=== PATIENT | female | born 1975 | race Caucasian/White ===

== ENCOUNTER 2017-11-06 09:20 | Emergency (ER) | payer MEDICAID, SELFPAY ==
[2017-11-06 09:21] VITALS: BP 123/66; PULSE 77; RESP 16; TEMP 36.8; O2SAT 97; BMI 23.9
--- NOTE | 2017-11-06 09:44 | ED.DCSUM_ITS ---
- ER Visit Summary Date of Service: 11/06/17 Chief Complaint: Dizziness History of Present Illness: The patient is a [address] Devries. She reports that she woke up this morning at 730 and had vertigo. States that she has been nauseated and vomited twice. No blood or emesis. She denies any ringing or roaring in her ear. No ear pain. No muffled hearing. She states that the dizziness has resolved and that she now just feels lightheaded. She states that this is worsened with closing her eyes. There is no change with movement of her head. She reports when she stands she does feel off balance. She denies any slurred speech, double vision, headache, numbness, tingling, or weakness. She reports she has had similar episodes in the past with hypoglycemia. Patient reports that she had 7 teeth pulled 8 days ago and has had decreased p.o. intake because of this. Physical Examination: Vitals: Stable. Afebrile. General: Well-nourished and well-developed. Head: Normocephalic atraumatic. HEENT: TMs are within normal limits bilaterally. Neck: Supple, no lymphadenopathy. No JVD. Nontender. Cardiovascular: Regular rate and rhythm. No murmurs. Respiratory: No respiratory distress. Clear to auscultation bilaterally. Abdominal: Soft, nontender, nondistended, normal bowel sounds. No guarding, rebound, or peritoneal signs. Back: Nontender. Extremities: Nontender, no edema. Skin: Normal color, no rash. Neurologic: Alert and oriented ?3. Cranial nerves II through XII are intact. Normal strength and sensation. No nystagmus. Psych: Normal affect. Test Results: CBC is more for an H&H 9.6 and 30.2. Her last hemoglobin was 10.5 on September 04 of this year. Chem-7 is more for chloride 109. test is negative. CTA head and neck are normal. MRI brain shows normal enhanced/ unenhanced brain. She does have mucosal thickening of the soft central sphenoid and mild mucosal thickening of the left maxillary sinus. Emergency Department Course and Treatment: Patient had an IV placed. She was given a liter normal saline. She was given Zofran and Antivert. She continues to complain of dizziness with ambulation. Following the MRI returning patient reports her symptoms are much better and would like to go home. Treatment Plan: Patient will be discharged with Zofran and Antivert. Instructed to follow-up her primary care physician 1 to days if not improving. Return to the emergency department for any worsening symptoms. Disposition: To home in improved and stable condition. Impression: 1. Vertigo, peripheral. This note was generated with [employer] dictation software. It may contain incorrect words, spelling, and punctuation that were not noted in review of the chart prior to signing ED Disposition - Plan for ED Patient: Disposition: Home or Assisted Living Chief Complaint: Dizziness Instructions: ED Vertigo Unspecified Prescriptions: Ondansetron [Zofran Odt] 4 mg PO Q8H PRN PRN #10 tablet PRN Reason: Nausea Meclizine HCl [Antivert] 25 mg PO 4X/DAY PRN PRN #20 tablet PRN Reason: Dizziness Referrals: Bro Devries MD [STAFF PHYSICIAN] - 2 Days Additional Instructions: If not improving.
[2017-11-06 09:57] LABS: Absolute Lymphocyte Count 1.79 X10^3/ul (0.83-4.51); Absolute Neutrophil Count 2.6 X10^3/uL (2.0-7.7); Basophil# 0.03 X10^3/uL; Basophil% 0.6 % (0-1); Eosinophil# 0.57 X10^3/uL; Eosinophils% 10.5 % (0-5); Hematocrit 30.2 % (37-47); Hemoglobin 9.6 g/dl (12.0-15.0); Lymphocyte # 1.79 X10^3/ul (4.0); Mean Corp Hgb Conc 31.8 g/gl (32-36); Mean Corpuscular Hgb 25.1 pg (27.0-32.0); Mean Corpuscular Volume 78.9 fL (81-99); Mean Platelet Vol. 9.8 fl (6.2-12.0); Monocyte# 0.46 X10^3/uL; Monocyte% 8.5 % (0-10); Neutrophil # 2.57 X10^3/uL (2.7-7.7); Neutrophil % 47.2 % (47-70); Platelet Count 485 K/mm3 (150-450); RBC Distribution Width CV 17.4 % (11.6-14.6); RBC Distribution Width SD 48.9 fl (35.1-43.9); Red Blood Count 3.83 M/mm3 (4.2-5.4); White Blood Count 5.4 K/mm3 (4.4-11.0)
[2017-11-06] MEDS: Meclizine HCl 25 MG Tablet PO (09:57)
[2017-11-06] MEDS: Ondansetron 4 MG/2 ML Vial IV (09:57)
[2017-11-06 09:58] LABS: POSITIVE COUNT NO; POSITIVE DIFFERENTIAL NO; POSITIVE MORPHOLOGY NO
[2017-11-06] MEDS: 0.9% Normal Saline 1,000 ML 1000 ML IV (09:58)
[2017-11-06 10:09] VITALS: BP 100/45; BP 103/62; BP 109/59; PULSE 59; PULSE 60; PULSE 75
[2017-11-06 10:10] LABS: Bedside Glucose 92 mg/dL (70-110)
[2017-11-06 10:10] LABS: Anion Gap 6 (5-15); BUN 7 mg/dL (7-18); BUN/Creat Ratio 9.3 RATIO (10-20); Calcium,Total 8.6 mg/dL (8.5-10.1); Chloride 109 mmol/L (98-107); Creatinine, Serum 0.76 mg/dL (0.55-1.02); EST Glomerular Filtration Rate 90 mL/min (>60); Est Glom Filt Rate - Afr Amer 109 mL/min (>60); Estimated Creatinine Clearance 80.58 ml/min; Glucose 102 mg/dL (74-106); Potassium 3.7 mmol/L (3.5-5.1); Sodium Level 141 mmol/L (136-145)
[2017-11-06 10:19] LABS: Pregnancy, Serum, hCG Quali. NEGATIVE Negative (0-9 Nonpreg)
[2017-11-06 10:37] VITALS: BP 98/59; PULSE 52; RESP 18; O2SAT 100
[2017-11-06 10:54] VITALS: BP 99/62; PULSE 60; RESP 18; O2SAT 98
[2017-11-06 12:00] VITALS: BP 96/55; PULSE 54; RESP 18; O2SAT 98
[2017-11-06 16:20] VITALS: BP 132/74; BP 132/75; PULSE 88; RESP 16; O2SAT 94
== END 2017-11-06 16:22 | disposition home or self-care (01) ==
PROVIDERS: Emergency Provider Emergency Medicine
DX: H81.399 Other peripheral vertigo, unspecified ear (principal); J45.909 Unspecified asthma, uncomplicated; Z79.899 Other long term (current) drug therapy
CPT/HCPCS: 70496; 70498; 70553; 80048; 82962; 84703; 85025; 96361; 96374; 99285; A9585; J7030; Q9967; A4216; J2405

== ENCOUNTER → 2019-05-14 08:02 | Outpatient (CLI) | payer MEDICAID, SELFPAY ==
--- NOTE | 2019-05-14 15:42 | NEURO ---
NCS and/or EMG Patient Report Ordering Doctor: Hal Lai DATE OF SERVICE: 05/14/19 Radha Wright is a 43-year-old female presents for electrodiagnostic testing of the right upper limb. She reports numbness and tingling in the right hand. Electrodiagnostic findings: The right median motor nerve demonstrates prolonged distal latency with normal amplitude and conduction velocity. Right ulnar motor responses within normal limits. Normal right ulnar and median F-wave. Prolonged median sensory latency at the wrist and palm. On needle EMG, all muscles tested in the right upper limb showed no evidence of denervation with normal motor unit action potentials. Electrodiagnostic impression: This is an abnormal study in the right upper limb. 1. Electrodiagnostic findings demonstrate right-sided median mononeuropathy. This is consistent with a mild right carpal tunnel syndrome. If there are any further questions, please do not hesitate to contact me.
== END ==
PROVIDERS: PCP Family Medicine; Referring Provider Family Medicine; Visit Provider Family Medicine
DX: R20.0 Anesthesia of skin (principal)
CPT/HCPCS: 95886; 95909

== ENCOUNTER 2020-07-05 17:35 | Emergency (ER) | payer MEDICAID, SELFPAY ==
[2020-07-05 17:36] VITALS: BP 110/79; PULSE 85; RESP 14; TEMP 36.7; O2SAT 100; BMI 23.8
--- NOTE | 2020-07-05 17:45 | EKG12_ITS ---
Test Reason : CHEST OTHER Blood Pressure : / mmHG Vent. Rate : 077 BPM Atrial Rate : 077 BPM P-R Int : 134 ms QRS Dur : 088 ms QT Int : 384 ms P-R-T Axes : 077 059 063 degrees QTc Int : 434 ms Normal sinus rhythm Low Voltage QRS (Limb Leads) Nonspecific ST abnormality Abnormal ECG Confirmed by RYANN CESPEDES, POOL ([id number]), supervising editor trailer LOREN COX ([id number]) on 07/07/2020 10:06:10 AM Referred By: ABIGAIL Confirmed By:POOL GARZON MD
--- NOTE | 2020-07-05 17:49 | ED.DCSUM_ITS ---
History of Present Illness Chief Complaint: Chest Other Informant: Patient Onset: Yesterday Context: Gradual Onset Timing: Intermittent Current Severity: Moderate Maximum Severity: Severe Narrative: The patient is a 45-year-old female with medical history significant for asthma presents to the emergency department with left-sided pleuritic chest pain. The patient states her symptoms began yesterday. She states she was trying to get into bed and felt a sharp pain in her left chest. She felt like she could not catch her breath. Of hard to twist and move. She did not have any definitive trauma. She states she went to urgent care and a lunch break today and was told that if her pain worsened to come to the emergency department. She denies fevers or chills. She states the pain is worse with palpation and twisting. She has no history of pulmonary embolus. She is otherwise been in her normal state of health. Prior similar symptoms: No Recent Illness/Hospitalization: No Past Medical History - Allergies and Home Meds Allergies/Adverse Reactions: Allergies bee venom protein (honey bee) Allergy (Verified 07/05/20 17:39) Shortness of breath Primary Care Physician: Hal Lai MD [Primary Care Provider] - Prior records reviewed: Yes Past Medical History: - - Asthma Surgical History: noncontributory Smoking Status: Never smoker Review of Systems General: Denies: Chills, Fever, Sweats Eyes: Denies: Visual changes - bilaterally, Diplopia ENT: Denies: Rhinorrhea, Sore throat Cardiovascular: Reports: Chest pain. Denies: Palpitations Respiratory: Reports: Dyspnea. Denies: Cough, Dyspnea on exertion Gastrointestinal: Denies: Abdominal pain, Nausea, Vomiting, Diarrhea, Melena, Hematochezia Genitourinary: Denies: Dysuria, Hematuria, Frequency Musculoskeletal: Denies: Back pain, Extremity Pain Skin: Denies: Rash, Wounds Neurological: Denies: Headache, Weakness, Numbness Physical Exam Vital Signs/Narrative: Vital Signs Temp Pulse Resp BP Pulse Ox 07/05/20 17:36 98.0 F 85 14 110/79 100 Inital Vital Signs reviewed: Yes General: Well nourished, Well developed, No Acute Distress Head: Normocephalic, Atraumatic Eyes: Perrl, EOMI ENT: Moist mucous membranes, No rhinorrhea Neck: Supple, Nontender Cardiovascular: Regular rate, Regular rhythm, No murmurs Respiratory: No distress, CTA bilaterally, Chest tenderness Abdomen: Soft, Nontender, Nondistended, Normal bowel sounds Back: Nontender, Normal Inspection Extremities: Nontender, No edema Skin: Normal color, No rash Neurological: Alert, Oriented x3, Cranial nerves II-XII grossly intact, Normal Strength, Normal Sensation Psychological: Normal affect, Normal Mood Diagnostic/Tx/Re-eval Clinical Impression(s) from Imaging Studies Ribs w/Chest X-Ray 07/05/20 18:27 IMPRESSION: No acute abnormalities. 5 mm calcified granuloma in the right mid lung. Electronically Signed: Gregorio Aranda MD at 18:50 EDT Tel , Service support , Chest CTA 07/05/20 18:33 IMPRESSION: Normal CTA chest examination, without a demonstrated pulmonary embolism or arterial dissection. Probable COPD, with atelectasis and small effusion in the posterior left lung base. Electronically Signed: Rodolfo Castellon MD at 19:24 EDT , Service support , Abnormal Lab Results 07/05/20 07/05/20 07/05/20 18:07 18:07 18:07 WBC 11.0 RBC 4.20 Hgb 10.1 L Hct 33.3 L MCV 79.3 L MCH 24.0 L MCHC 30.3 L RDW Std Deviation 44.8 H RDW Coeff of Garfield 15.7 H Plt Count 414 MPV 9.4 Immature Gran % (Auto) 0.300 Neut % (Auto) 63.1 Lymph % (Auto) 24.0 Jewell % (Auto) 8.1 Eos % (Auto) 4.0 Baso % (Auto) 0.5 Absolute Neuts (auto) 7.0 Absolute Lymphs (auto) 2.65 Nucleated RBC % 0 D-Dimer Quant (PE/DVT) 0.97 H* Sodium 137 Potassium 3.3 L Chloride 104 Carbon Dioxide 28.0 Anion Gap 5 BUN 10 Creatinine 0.73 Estim Creat Clear Calc 81.35 Est GFR (MDRD) Af Amer 111 Est GFR (MDRD) Non-Af 92 BUN/Creatinine Ratio 13.6 Glucose 87 Calcium 9.0 - Rhythm Strip Rhythm Strip: Sinus Rhythm Rate: 80 Ectopy: None - Medical Decision Making The patient presents with left-sided pleuritic pain. I did obtain a chest x- ray. Is reviewed by both myself and the radiologist. There is no definitive abnormality. Metabolic work-up was pursued. The patient's D-dimer was elevated. Because of this, CT of the chest was obtained. There is no evidence of pulmonary embolus. There is a trace left-sided effusion and small atelectasis. Patient has not had cough or fever. I do feel that her symptoms are likely secondary to pleurisy. I did go over the results with the patient. I am going to prescribe her a short prednisone burst. She was counseled on concerning symptoms and reasons to return. She will be discharged home. Impression 1. Pleurisy ED Disposition - Plan for ED Patient: Instructions: ED Pleurisy Prescriptions: Prednisone [Deltasone] 60 mg PO DAILY #15 tablet Prescription Printed Referrals: Hal Lai MD [Primary Care Provider] -
[2020-07-05] MEDS: Ketorolac 30 MG/ML Syringe IV (18:10)
[2020-07-05 18:18] LABS: Absolute Lymphocyte Count 2.65 X10^3/uL (0.83-4.51); Basophil# 0.06 X10^3/uL; Basophil% 0.5 % (0-1); Eosinophil# 0.44 X10^3/uL; Hematocrit 33.3 % (37-47); Hemoglobin 10.1 g/dL (12.0-15.0); Lymphocyte # 2.65 X10^3/ul (0.83-4.51); Mean Corp Hgb Conc 30.3 g/dL (32-36); Mean Corpuscular Volume 79.3 fL (81-99); Mean Platelet Vol. 9.4 fl (6.2-12.0); Monocyte# 0.89 X10^3/uL; Monocyte% 8.1 % (0-10); NRBC Flagged by Analyzer 0 % (0-5); Neutrophil # 6.97 X10^3/uL (2.7-7.7); Neutrophil % 63.1 % (47-70); Platelet Count 414 K/mm3 (150-450); RBC Distribution Width CV 15.7 % (11.6-14.6); RBC Distribution Width SD 44.8 fl (35.1-43.9)
--- NOTE | 2020-07-05 18:27 | RAD_ITS ---
INDICATION: pain EXAMINATION/TECHNIQUE: X-RAY - XR Ribs Unilateral W/ PA Chest Min 3 Views COMPARISON: None. FINDINGS: SOFT TISSUES: No soft tissue swelling or gas. BONES: No displaced fracture. No sclerotic or destructive changes observed. VISUALIZED LUNGS: 5 mm calcified granuloma in the right mid lung.. No pneumothorax. RAD/Ribs Uni Min 3V w/PA Chest IMPRESSION: No acute abnormalities. 5 mm calcified granuloma in the right mid lung. Electronically Signed: Gregorio Aranda MD at 18:50 EDT Tel , Service support ,
[2020-07-05 18:32] LABS: Anion Gap 5 (5-15); BUN 10 mg/dL (7-18); BUN/Creat Ratio 13.6 RATIO (10-20); Chloride 104 mmol/L (98-107); Creatinine, Serum 0.73 mg/dL (0.55-1.02); D-Dimer Quantitative (DVT/PE) 0.97 FEU/ug/m (0.27-0.49); EST Glomerular Filtration Rate 92 mL/min (>60); Est Glom Filt Rate - Afr Amer 111 mL/min (>60); Estimated Creatinine Clearance 81.35 ml/min; Glucose 87 mg/dL (74-106); Potassium 3.3 mmol/L (3.5-5.1); Sodium Level 137 mmol/L (136-145)
--- NOTE | 2020-07-05 18:33 | CT_ITS ---
STUDY: CTA CHEST REASON FOR EXAM: Female, 45 years old. chest pain TECHNIQUE: The examination was performed with the intravenous administration of IV 75mL Isovue-[id number]. Post-processing of the angiographic images was performed, with multiplanar reformation and 3D reconstruction. Individualized dose optimization techniques were used for this CT. COMPARISON: None. FINDINGS: Normal enhancement of the main pulmonary artery and right and left pulmonary arteries. Normal enhancement of the bilateral peripheral pulmonary arteries. There is no demonstrated pulmonary embolism. Normal thoracic aorta and visualized great vessels. There is no demonstrated aortic dissection. Normal heart and pericardium. Normal mediastinum. Normal hilar regions. Normal visualized trachea and bronchi. The lungs are hyper expanded, with flattening of the hemidiaphragms. There is mild atelectasis or less likely infiltrate in the posterior left lung base. There is a very small left posterior pleural effusion. Normal osseous structures. Normal visualized upper abdomen. CT/CTA Chest W/WO Contrast IMPRESSION: Normal CTA chest examination, without a demonstrated pulmonary embolism or arterial dissection. Probable COPD, with atelectasis and small effusion in the posterior left lung base. Electronically Signed: Rodolfo Castellon MD at 19:24 EDT , Service support ,
[2020-07-05] MEDS: predniSONE 20 MG Tablet 60 MG PO (20:17)
[2020-07-05 20:18] VITALS: BP 105/60
== END 2020-07-05 20:20 | disposition home or self-care (01) ==
LOC: ED 18:40
PROVIDERS: Emergency Provider Emergency Medicine; PCP Family Medicine
DX: R09.1 Pleurisy (principal); J45.909 Unspecified asthma, uncomplicated; Z79.899 Other long term (current) drug therapy
CPT/HCPCS: 71101; 71275; 80048; 85025; 85379; 93005; 96374; 99285; Q9967; A4216